=== PATIENT | female | born 1995 | race Native Hawaiian/Other Pacific Islander ===

== ENCOUNTER 2018-02-06 16:40 | Emergency (ER) | payer OTHER ==
[~2018-02-06] VITALS: Ht 160 cm; Wt 63.5 kg
[2018-02-06 16:50] VITALS: BP 127/75; TEMP 98
== END 2018-02-06 17:54 | disposition home or self-care (01) ==
LOC: ED 16:40 → EDBD 16:40 → ED 17:54
DX: K59.09 Other constipation (principal); Z34.91 Encounter for supervision of normal pregnancy, unspecified, first trimester
CPT/HCPCS: 99282